=== PATIENT | female | born 1990 | race Caucasian/White ===

== ENCOUNTER 2017-07-08 00:59 | Inpatient (IN) | END 2017-07-11 13:10 | disposition home or self-care (01) | DRG 765 | DX: O34.211 Maternal care for low transverse scar from previous cesarean delivery (principal); Z68.41 Body mass index [BMI] 40.0-44.9, adult; O99.214 Obesity complicating childbirth; E66.9 Obesity, unspecified; Z37.0 Single live birth; Z3A.38 38 weeks gestation of pregnancy ==

== ENCOUNTER 2017-09-13 05:54 | Day surgery (SDC) | END 2017-09-13 11:25 | disposition home or self-care (01) ==

== ENCOUNTER 2018-09-25 06:10 | Day surgery (SDC) | payer OTHER ==
[~2018-09-25] VITALS: Ht 157.5 cm; Wt 78.3 kg
[2018-09-25] VITALS (15 sets, daily range): BP systolic 112–141; BP diastolic 64–90; PULSE 72–96; RESP 12–25; Ht 157.5 cm; Wt 78.3 kg
[~2018-09-25 06:10] MED LIST: CEFAZOLIN 2 GM/50 ML (PMX) 50 ML IVPB ONE; SOD CHLORIDE 0.9% 1,000 ML IV SCH
[2018-09-25] MEDS ORDERED: POLYMYXIN/BACITRACIN 1L IRRIG ONE (06:59)
[2018-09-25] MEDS ORDERED: BUPIVACAINE 0.25% (MPF) 30 ML INJ ONE (06:59)
[2018-09-25] MEDS ORDERED: LIDOCAINE 2% (SDV) 5 ML INJ ONE (07:04)
[2018-09-25] MEDS ORDERED: PROPOFOL 20 ML ONE (07:04)
[2018-09-25] MEDS ORDERED: MIDAZOLAM 1 MG/ML 2 ML INJ ONE (07:04)
[2018-09-25] MEDS ORDERED: FENTAnyl 50 MCG/ML VIAL ONE (07:04)
[2018-09-25] MEDS ORDERED: ONDANSETRON 4 MG INJ ONE (07:05)
[2018-09-25] MEDS ORDERED: METOCLOPRAMIDE 10 MG INJ ONE (07:05)
[2018-09-25] MEDS ORDERED: SUCCINYLCHOLINE CHLORIDE 100 MG/5 ML SYG IV ONE (07:05)
[2018-09-25] MEDS ORDERED: ROCURONIUM 50 MG INJ ONE (07:05)
[2018-09-25] MEDS ORDERED: ROPIVACAINE 0.5 % 30 ML VIAL ONE (07:32)
--- NOTE | 2018-09-25 09:19 | OPR ---
Date/Time of Note Date/Time of Note DATE: 09/25/18 TIME: 09:13 Operative Report Procedure Date: Sep 25, 2018 Preoperative Diagnosis incarcerated ventral hernia Postoperative Diagnosis same Operation/Procedure Performed 1. laparoscopic incarcerated ventral hernia repair 2. implantation of ventralight ST mesh 15 x 20 cm 3. laparoscopic lysis of adhesions Surgeon see signature line Natural Sciences Manager none Anesthesia Type: general Estimated Blood Loss: 0 - 10 ml's Transfusion none Specimen none Grafts/Implants none Complications none Indications This is a 28-year-old female with incarcerated ventral hernia. She requires surgical repair. Risks alternatives benefits and percent were discussed the patient. Patient expressed understanding and consents to the operation. Procedure Description Patient taken to the OR and prepped and draped in usual sterile fashion. Surgical timeout was performed. IV antibiotics given. Left upper quadrant 5 mm transverse incision was made at the 15 blade. Using a 5 mm optical trocar optical entry is performed. Pneumoperitoneum is established. Left flank 12 mm optical trocar was placed under direct visualization. Left lower quadrant 5 mm optical trochars placed under direct visualization. Upon initial inspection there is adhesions to the anterior abdominal wall. Extensive laparoscopic lysis of adhesions was performed. This allowed identification of the hernia and the hernia defect with incarcerated contents. Lap scopic lysis of adhesions was further performed with laparoscopic harmonic to manually reduce the incarcerated contents and extract the contents through the left flank port. The primary hernia defect is identified. This was then closed with interrupted #1 Vicryl. After primary closure of the defect underlay mesh with ventral light ST 15 x 20 cm was placed with appropriate positioning to allow the barrier aspect of the mesh to be facing the intraperitoneal region. This was secured in place with secure strap. Approximately 4-5 cm of underlay coverage was performed. Good hemostasis was verified. All ports were removed under direct visualization. Skin was closed using skin mark. Dry dressings were applied. A tap block was performed by the anesthesiologist. Felipe MANCINI Sep 25, 2018 09:19
[2018-09-25] MEDS ORDERED: HYDROmorphONE 1 MG/5 ML IV SYRINGE IV ONE (09:23)
[2018-09-25] MEDS ORDERED: OXYCODONE/ACETAMINOPHEN (5/325) TAB PO PRN ×2 (09:30)
[2018-09-25] MEDS ORDERED: ONDANSETRON 4 MG INJ IV PRN ×2 (09:30→10:00)
[2018-09-25] MEDS ORDERED: LABETALOL HCL 20MG INJ IV PRN (09:30)
[2018-09-25] MEDS ORDERED: hydrALAzine 20 MG INJ IV PRN (09:30)
[2018-09-25] MEDS ORDERED: HYDROmorphONE 1 MG/5 ML IV SYRINGE IV PRN ×5 (09:30→10:00)
[2018-09-25] MEDS ORDERED: KETOROLAC 30 MG INJ IV PRN ×2 (09:30→10:00)
[2018-09-25] MEDS ORDERED: HYDROCODONE/APAP (5/325) TAB PO ONE (09:30)
[2018-09-25] MEDS ORDERED: FENTAnyl 50 MCG/ML VIAL IV PRN ×4 (09:30→10:00)
--- NOTE | 2018-09-25 09:30 | PREAC ---
Date/Time of Note Date/Time of Note DATE: 09/25/18 TIME: 09:29 Anesthesia Eval and Record Evaluation Time Pre-Procedure Interview DATE: 09/25/18 TIME: exam performed at 730 Age 28 Sex female NPO: 8 hrs Preoperative diagnosis ventral hernia Planned procedure ventral laparoscopic hernian repair w/ mesh Past Medical History Past Medical History: None Surgery & Anesthesia Issues No known issue Meds Anticoagulation: No Beta Dottie within 24 hr: No Reason Beta Dottie not given: Pt. not on B-Dottie No Active Prescriptions or Reported Meds Current Medications Sodium Chloride 1,000 ml @ 75 mls/hr [id number] IV ; Start 09/25/18 at 06:00; Stop 09/25/18 at 19:19 Acetaminophen/ Hydrocodone Bitart (Clyde (5/325)) 1 tab ONCE ONCE PO ; Start 09/25/18 at 09:30; Stop 09/25/18 at 09:31 Meds reviewed: Yes Allergies Coded Allergies: No Known Allergy (Verified , 09/25/18) Allergies Reviewed: Yes Labs/Studies Labs Reviewed: Reviewed by anesthesiologist test: Negative Pre-procedure Exam Last vitals Vital Signs Date Temp Pulse Resp B/P (MAP) Pulse Ox O2 O2 Flow FiO2 Time Delivery Rate 09/25/18 98.2 84 18 125/65 99 Room Air 07:11 (85) Airway: Adequate mouth opening, Adequate thyromental dist Mallampati: Mallampati III Teeth: Normal Lung: Normal Heart: Normal ASA Physical Status ASA physical status: 2 Emergency: None Planned Anesthetic General/MAC: ETT Planned Pain Management Single shot nerve block, Parenteral pain med, Local by surgeon Pre-operative Attestations Prior to commencing anesthesia and surgery, the patient was re-evaluated, there was verification of: *The patient's identity *The results of appropriate recent lab work and preoperative vital signs *The above evaluation not changing prior to induction *Anesthetic plan, risk benefits, alternative and complications discussed with patient/family; questions answered; patient/family understands, accepts and wishes to proceed. CELSA AGARWAL MD Sep 25, 2018 09:30
--- NOTE | 2018-09-25 09:31 | PAC ---
Date/Time of Note Date/Time of Note DATE: 09/25/18 TIME: 09:30 Post-Anesthesia Notes Post-Anesthesia Note Last documented vital signs Vital Signs Date Temp Pulse Resp B/P (MAP) Pulse Ox O2 O2 Flow FiO2 Time Delivery Rate 09/25/18 98.2 84 18 125/65 99 Room Air 07:11 (85) Activity: WNL Respiratory function: WNL Cardiovascular function: WNL Mental status: Baseline Pain reasonably controlled: Yes Hydration appropriate: Yes Nausea/Vomiting absent: Yes CELSA AGARWAL MD Sep 25, 2018 09:30
[2018-09-25] MEDS: HYDROmorphONE 1 MG/5 ML IV SYRINGE IV PRN ×2 (09:40→09:56)
[2018-09-25] MEDS ORDERED: LEVALBUTEROL (NEB) 1.25 MG/0.5 ML AMP HHN PRN (10:00)
[2018-09-25] MEDS ORDERED: DIPHENHYDRAMINE 50 MG INJ IV PRN (10:00)
[2018-09-25] MEDS ORDERED: MEPERIDINE 25 MG INJ IV PRN (10:00)
== END 2018-09-25 11:08 | disposition home or self-care (01) ==
LOC: SDS 06:10
PROVIDERS: ATTEND Surgery
DX: K43.6 Other and unspecified ventral hernia with obstruction, without gangrene (principal)
CPT/HCPCS: 49653; J1170; J2250; J2405; J2765; J2795; J3010; Z7610; 84703; C1781